=== PATIENT | male | born 1970 | race Caucasian/White ===

== ENCOUNTER 2017-07-07 18:10 | Emergency (ER) | payer MEDICARE | END 2017-07-07 20:10 | disposition home or self-care (01) | LOC: D.ER 18:10 | DX: J02.9 Acute pharyngitis, unspecified (principal); F41.8 Other specified anxiety disorders; F17.200 Nicotine dependence, unspecified, uncomplicated ==

== ENCOUNTER 2017-10-27 05:32 | Emergency (ER) | payer MEDICARE | END 2017-10-27 06:12 | disposition home or self-care (01) | LOC: D.ER 05:32 | DX: M25.562 Pain in left knee (principal); M17.12 Unilateral primary osteoarthritis, left knee; F98.8 Other specified behavioral and emotional disorders with onset usually occurring in childhood and adolescence ==

== ENCOUNTER 2017-11-24 21:34 | Emergency (ER) | payer MEDICARE | END 2017-11-24 23:06 | disposition home or self-care (01) | LOC: D.ER 21:34 | DX: L02.416 Cutaneous abscess of left lower limb (principal); L02.415 Cutaneous abscess of right lower limb; F98.8 Other specified behavioral and emotional disorders with onset usually occurring in childhood and adolescence ==

== ENCOUNTER 2019-03-07 08:47 | Inpatient (IN) | payer MEDICARE ==
[2019-03-07] MEDS ORDERED: SUBOXONE 2 MG-01 TAB SL (08:56)
[2019-03-07 09:23] LABS: BASOPHILS 0.1 % (0-2); EOSINOPHILS 0.3 % (0-7); HEMATOCRIT 38.2 % (42.0-54.0); HEMOGLOBIN 13.1 g/dL (13.5-17.5); IMMATURE GRANULOCYTES 0.2 % (0-5); LYMPHOCYTES 17.1 % (15-50); MCH 29.2 pg (26.0-34.0); MCHC 34.3 g/dL (31.0-37.0); MCV 85.1 fL (80.0-100.0); MEAN PLATELET VOLUME 9.5 fL (7.4-10.4); MONOCYTES 11.4 % (2-11); NEUTROPHILS 70.9 % (40-80); PLATELET COUNT 244 10x3/uL (130-400); RBC 4.49 10x6/uL (4.20-6.10); RDW 13.3 % (11.5-14.5); WBC 10.1 10x3/uL (4.8-10.8)
[2019-03-07 09:38] LABS: ALBUMIN 3.5 g/dL (3.4-5.0); ALKALINE PHOSPHATASE 135 U/L (46-116); ALT (SGPT) 87 U/L (10-68); BILIRUBIN - TOTAL 1.07 mg/dL (0.2-1.3); CALC OSMOLALITY 269 mosm/kg (275-300); CALCIUM 8.8 mg/dL (8.5-10.1); CARBON DIOXIDE 25.2 mmol/L (21.0-32.0); CHLORIDE - SERUM 97 mmol/L (98-107); CREATININE - SERUM 1.1 mg/dL (0.6-1.3); GLUCOSE 98 mg/dL (74-106); POTASSIUM - SERUM 3.7 mmol/L (3.5-5.1); PROTEIN - SERUM 7.2 g/dL (6.4-8.2); SODIUM 134 mmol/L (136-145); UREA NITROGEN 19 mg/dL (7-18); eGFR NON AFRICAN AMERICAN 76 mL/min (90-120)
[2019-03-07 09:41] LABS: APPEARANCE CLEAR (CLEAR); BILIRUBIN NEGATIVE (NEGATIVE); COLOR DK YELLOW (YELLOW); GLUCOSE NEGATIVE (NEGATIVE); KETONE NEGATIVE (NEGATIVE); NITRITE NEGATIVE (NEGATIVE); PROTEIN NEGATIVE (NEGATIVE); SPECIFIC GRAVITY 1.025 (1.005-1.020); UROBILINOGEN NORMAL (NORMAL)
[2019-03-07 09:49] LABS: UDS - AMPHET POSITIVE QUAL (NEGATIVE); UDS - BARB NEGATIVE QUAL (NEGATIVE); UDS - BENZO POSITIVE QUAL (NEGATIVE); UDS - COCAINE NEGATIVE QUAL (NEGATIVE); UDS - OPIATE NEGATIVE QUAL (NEGATIVE); UDS - PCP NEGATIVE QUAL (NEGATIVE); UDS - THC POSITIVE QUAL (NEGATIVE)
[2019-03-07 10:10] LABS: CREATINE KINASE 3833 UL (21-232)
[2019-03-07 10:32] LABS: CKMB 22.4 U/L (0.0-3.6)
--- NOTE | 2019-03-07 10:34 | NUR ---
PT DECLINED IV AND FLUIDS. REQUESTING TO LEAVE. DR SALINAS INFORMED
[2019-03-07 11:30] VITALS: BP 152/88
[2019-03-07 14:31] VITALS: BP 121/62
[2019-03-07 16:46] VITALS: BP 100/74
[2019-03-07 18:02] VITALS: BP 152/88; BMI 28.7
--- NOTE | 2019-03-07 19:25 | NUR ---
ASSISTED UP TO BR. GAIT VERY UNSTEADY. WEAKNESS NOTED. ALERT AND ORIENTED TO SELF AND PLACE. CONFUSED. SPEECH DIFF TO UNDERSTAND AT TIMES. ELEONORA ALARM PLACED ON BED FOR PT SAFETY. ENCOURAGED TO USE CALL WAGONER FOR ASSISTANCE. DIFF FOLLOWING DIRECTIONS. IMPULSIVE BEHAVIOR NOTED. RESP EVEN AND NONLABORED. TELEMETRY SHOWS SR WITH RATE OF 76. DENIES PAIN. MVI INFUSING AT THIS TIME @ 125 MLHR IN LT HAND. SR ELEVATED X2. CL IN REACH.
[2019-03-07 20:00] VITALS: BP 92/52
--- NOTE | 2019-03-08 02:08 | NUR ---
SITTING UP ON SIDE OF BED. ALARM ACTIVATED. ASSISTED TO BR. PT IRRITABLE WITH STAFF AND UNSTEADY STANDING UP. INSISTS HE AMB BY HIMSELF. STAFF INSISTED THAT HE LET THEM HELP HIM AMB TO BATHROOM. AGITATED. ASSISTED BACK TO BED AFTER VOIDING. MEDICATED WITH ATIVAN FOR ANXIETY. CL IN REACH.
[2019-03-08 04:00] VITALS: BP 90/50
[2019-03-08 05:46] LABS: BASOPHILS 0.3 % (0-2); EOSINOPHILS 2.3 % (0-7); HEMATOCRIT 37.5 % (42.0-54.0); HEMOGLOBIN 12.3 g/dL (13.5-17.5); LYMPHOCYTES 33.7 % (15-50); MCH 28.7 pg (26.0-34.0); MCHC 32.8 g/dL (31.0-37.0); MEAN PLATELET VOLUME 9.9 fL (7.4-10.4); MONOCYTES 11.3 % (2-11); NEUTROPHILS 52.4 % (40-80); PLATELET COUNT 208 10x3/uL (130-400); RBC 4.29 10x6/uL (4.20-6.10); RDW 13.8 % (11.5-14.5)
[2019-03-08 05:51] LABS: MCV 87.4 fL (80.0-100.0)
[2019-03-08 06:02] LABS: CALC OSMOLALITY 278 mosm/kg (275-300); CARBON DIOXIDE 28.3 mmol/L (21.0-32.0); CHLORIDE - SERUM 104 mmol/L (98-107); CREATININE - SERUM 0.6 mg/dL (0.6-1.3); GLUCOSE 124 mg/dL (74-106); MAGNESIUM - SERUM 2.1 mg/dL (1.8-2.4); PHOSPHOROUS 2.7 mg/dL (2.5-4.9); SODIUM 140 mmol/L (136-145); UREA NITROGEN 11 mg/dL (7-18); eGFR NON AFRICAN AMERICAN > 90 mL/min (90-120)
--- NOTE | 2019-03-08 08:41 | NUR ---
PT SITTING UP IN BED EATING BREAKFAST. CO OF BEING "SHAKY" NO S/S OF ACUTE DISTRESS. DT PRECAUTIONS IN PLACE. CL IN PLACE.
[2019-03-08 08:51] VITALS: BP 102/55
[2019-03-08 12:41] VITALS: BP 105/52
[2019-03-08 12:59] LABS: CREATINE KINASE 1242 UL (21-232)
--- NOTE | 2019-03-08 13:53 | MORECARE ---
CASE MANAGEMENT DISCHARGE SUMMARY PATIENT: DANETTE SOLITARIO UNIT: [id number] ADM DATE: 03/07/19 AGE: 48 : 70 SEX: M ROOM/BED: D.2232 AUTHOR: SUSHILA HERNANDEZ PHYSICIAN: REFERRING PHYSICIAN: CECILIA DUMONT MD DATE OF SERVICE: 03/08/19 Discharge Plan Patient Name: DANETTE SOLITARIO Facility: [facility]:[place] : 1970 Planned Disposition: Other Type of Facility Anticipated Discharge Date: Discharge Date: Expected LOS: Initial Reviewer: [email or web address] Initial Review Date: 03/07/2019 Generated: 03/08/19 2:53 pm Patient Name: DANETTE SOLITARIO Page [id number] at 1353 All edits/amendments must be made on the electronic document DICTATION DATE: 03/08/19 1353 TUMBLER MACHINE OPERATOR HELPER: JEFERSON 03/08/19 1353 RPT#: [id number] DC DATE: STATUS: ADM IN [facility] [address] [place] [address] END OF REPORT
--- NOTE | 2019-03-08 14:02 | MORECARE ---
CASE MANAGEMENT DISCHARGE SUMMARY PATIENT: DANETTE SOLITARIO UNIT: [id number] ADM DATE: 03/07/19 AGE: 48 : 70 SEX: M ROOM/BED: D.2232 AUTHOR: SUSHILA HERNANDEZ PHYSICIAN: REFERRING PHYSICIAN: CECILIA DUMONT MD DATE OF SERVICE: 03/08/19 Discharge Plan Patient Name: DANETTE SOLITARIO [facility] : 1970 Planned Disposition: Other Type of Facility Anticipated Discharge Date: Discharge Date: Expected LOS: Initial Reviewer: [email or web address] Initial Review Date: 03/07/2019 Generated: 03/08/19 3:01 pm DCPIA - Discharge Planning Initial Assessment Updated by [email or web address]: Mari Davila on 03/08/19 1:57 pm * Is the patient Alert and Oriented? Yes * How many steps to enter\exit or inside your home? n/a * PCP NONE * Pharmacy [facility] [place] and [facility] * Preadmission Environment Homeless * Other Environment Plans to find an apartment * Facility Name Not known at this time * ADLs Independent * Equipment None * Other Equipment N/A * Verbal permission to speak to the caregivers and representatives has been obtained from the patient. No * Community resources currently utilized None * Please name any agencies selected above. N/A * Additional services required to return to the preadmission environment? Yes * Can the patient safely return to the preadmission environment? No * Has this patient been hospitalized within the prior 30 days at any hospital? No Last DP export: 03/08/19 12:53 pm Patient Name: DANETTE SOLITARIO Page [id number] at 1402 All edits/amendments must be made on the electronic document DICTATION DATE: 03/08/19 1401 BULL CHAIN OPERATOR: JEFERSON 03/08/19 1401 RPT#: [id number] DC DATE: STATUS: ADM IN [facility] [address] [place] [address] END OF REPORT
--- NOTE | 2019-03-08 14:21 | MORECARE ---
CASE MANAGEMENT DISCHARGE SUMMARY PATIENT: DANETTE SOLITARIO UNIT: [id number] ADM DATE: 03/07/19 AGE: 48 : 70 SEX: M ROOM/BED: D.2232 AUTHOR: DAVID,DOC PHYSICIAN: REFERRING PHYSICIAN: CECILIA DUMONT MD DATE OF SERVICE: 03/08/19 Discharge Plan Patient Name: DANETTE SOLITARIO Facility: [facility]:[place] : 1970 Planned Disposition: Other Type of Facility Anticipated Discharge Date: Discharge Date: Expected LOS: Initial Reviewer: [email or web address] Initial Review Date: 03/07/2019 Generated: 03/08/19 3:21 pm Comments DCP- Discharge Planning Updated by [email or web address]: Mari Davila on 03/08/19 1:[address] CM MET WITH THE PATIENT AT HIS BEDSIDE. HE IS ALERT AND ORIENTED. CM EXPLAINED ROLE , REQUESTED AND RECEIVED PERMISSION TO CONTINUE WITH ASSESSMENT. PATIENT HAS A [facility] ADDRESS LISTED. WHEN QUESTIONED HE STATES HE HAS LIVED IN [place] FOR 6- 8 MONTHS. HE STATES HE IS IN [place] WITH " WORK FRIENDS". 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 HE SAYS THE CENTER HAS A CHEM FREE HOUSE HERE IN [place]. HE STATES HE CANNOT RECALL THE ADDRESS. PCP- NONE CLINIC- NONE DME- NONE PHARMACY- [facility] ON [facility] AND [place]. PATIENT STATES HE LOST HIS PHONE AND HIS BILLFOLD WAS STOLEN. WHEN QUESTIONED STATES THE LOSS WAS REPORTED. 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 HE CANNOT GET HIS LICENSE BACK FOR A YEAR. STATES HE NEEDS TO GET ON [email or web address] TO CONTACT HIS FRIENDS TO GET HOUSING AND TRANSPORTATION. HE ASK ABOUT THE [place]. HE ALSO ASK ABOUT A HOUSING COMPLEX ON [address]. STATES HE HAS FRIENDS THAT LIVE IN THERE AND THEY CAN ASSIST HIM. HE IS UNDOMICILED. WILL NEED TRANSPORTATION AT DISCHARGE. HAS NO DME AND DENIES ANY DME NEEDS. CM TO FOLLOW TO ASSIST IS APPROPRIATE. DCPIA - Discharge Planning Initial Assessment Updated by [email or web address]: Mari Davila on 03/08/19 1:57 pm * Is the patient Alert and Oriented? Yes * How many steps to enter\\exit or inside your home? n/a * PCP NONE * Pharmacy [facility] [place] and * Preadmission Environment Homeless * Other Environment Plans to find an apartment * Facility Name Not known at this time * ADLs Independent * Equipment None * Other Equipment N/A * Verbal permission to speak to the caregivers and representatives has been obtained from the patient. No * Community resources currently utilized None * Please name any agencies selected above. N/A * Additional services required to return to the preadmission environment? Yes * Can the patient safely return to the preadmission environment? No * Has this patient been hospitalized within the prior 30 days at any hospital? No Last DP export: 03/08/19 1:01 pm Patient Name: DANETTE SOLITARIO Page [id number] at 1421 All edits/amendments must be made on the electronic document DICTATION DATE: 03/08/191420 TANK TRUCK DRIVER: JEFERSON 03/08/191420 RPT#: [id number] DC DATE: STATUS: ADM IN [facility] [address] [place] [address] END OF REPORT
[2019-03-08 17:21] VITALS: BP 136/82
--- NOTE | 2019-03-08 18:24 | NUR ---
PT RESTING IN BED. AROUSED BY VERBAL STIMULI. NO S/S OF ACUTE DISTRESS. CL IN PLACE.
--- NOTE | 2019-03-08 19:15 | NUR ---
AWAKE. LYING IN BED. ALERT AND ORIENTED TO SELF AND PLACE. CONFUSED TO TIME AND SITUATION. IMPULSIVE. ELEONORA ALARM ON FOR PT SAFETY. TELEMETRY SHOWS SR WITH RATE OF 77. MVI INFUSING @ 125 MLHR IN LT UPPER ARM WITHOUT DIFF. AMB WITH STANDBY ASSIST. RESP EVEN AND NONLABORED. NO DISTRESS. SR ELEVATED X2. CL IN REACH.
[2019-03-08 20:15] VITALS: BP 103/50
--- NOTE | 2019-03-08 21:00 | NUR ---
ASSISTED UP TO SHOWER. COMPLETE LINEN CHANGE AT THIS TIME.
--- NOTE | 2019-03-08 21:35 | NUR ---
REQUESTS ATIVAN FOR ANXIETY. MEDICATED ORDERED. CL IN REACH. ELEONORA ALARM IN USE.
[2019-03-09] VITALS: BP 131/79
[2019-03-09 04:00] VITALS: BP 96/54
[2019-03-09 06:30] LABS: BASOPHILS 0.2 % (0-2); EOSINOPHILS 1.6 % (0-7); HEMATOCRIT 35.8 % (42.0-54.0); HEMOGLOBIN 11.4 g/dL (13.5-17.5); IMMATURE GRANULOCYTES 0.2 % (0-5); LYMPHOCYTES 33.9 % (15-50); MCH 28.4 pg (26.0-34.0); MCHC 31.8 g/dL (31.0-37.0); MCV 89.3 fL (80.0-100.0); MEAN PLATELET VOLUME 9.8 fL (7.4-10.4); NEUTROPHILS 54.1 % (40-80); PLATELET COUNT 217 10x3/uL (130-400); RBC 4.01 10x6/uL (4.20-6.10); RDW 14.2 % (11.5-14.5); WBC 4.3 10x3/uL (4.8-10.8)
[2019-03-09 06:57] LABS: ALKALINE PHOSPHATASE 97 U/L (46-116); BILIRUBIN - TOTAL 0.27 mg/dL (0.2-1.3); CALC OSMOLALITY 285 mosm/kg (275-300); CARBON DIOXIDE 29.7 mmol/L (21.0-32.0); CHLORIDE - SERUM 109 mmol/L (98-107); CREATININE - SERUM 0.6 mg/dL (0.6-1.3); GLUCOSE 106 mg/dL (74-106); POTASSIUM - SERUM 3.4 mmol/L (3.5-5.1); PROTEIN - SERUM 5.6 g/dL (6.4-8.2); SODIUM 144 mmol/L (136-145); UREA NITROGEN 9 mg/dL (7-18); eGFR NON AFRICAN AMERICAN > 90 mL/min (90-120)
[2019-03-09 06:58] LABS: ALBUMIN 2.5 g/dL (3.4-5.0); ALT (SGPT) 63 U/L (10-68); CREATINE KINASE 642 UL (21-232)
[2019-03-09 09:15] VITALS: BP 127/72
--- NOTE | 2019-03-09 10:35 | NUR ---
MORNING ASSESSMENT COMPLETE. SEE ASSESSMENT FLOWSHEET FOR FURTHER DETAILS. PT LYING IN BED. DENIES NEEDS AT THIS TIME. CL IN REACH. SIDE RAILS UP X3 FOR PT SAFETY. BED IN LOWEST POSITION.
[2019-03-09] MEDS ORDERED: SUBOXONE MIS 8-2 SL (12:09)
[2019-03-09] MEDS ORDERED: CLONAZEPAM TAB 2MG PO (12:09)
[2019-03-09] MEDS ORDERED: LITHIUM CARB CAP 300 PO (12:09)
[2019-03-09] MEDS ORDERED: LYRICA300 MG PO (12:10)
[2019-03-09] MEDS ORDERED: ADDERALL 20 MG20 M1 PO (12:10)
[2019-03-09] MEDS ORDERED: CELEXA40 MG PO (12:10)
[2019-03-09] MEDS ORDERED: HYDROCODON-ACE1 EAC7 (12:10)
[2019-03-09 14:01] VITALS: BP 116/49
[2019-03-09 18:29] VITALS: BP 107/53
[2019-03-09 20:00] VITALS: BP 116/46
[2019-03-10] VITALS: BP 121/58
[2019-03-10 04:00] VITALS: BP 126/57
--- NOTE | 2019-03-10 04:06 | NUR ---
PT RESTING IN BED. EYES CLOSED. NO SIGNS OF DISTRESS. BREATHING EVEN AND UNLABORED. CALL LIGHT IN REACH. WILL CONTINUE PLAN OF CARE.
--- NOTE | 2019-03-10 04:08 | NUR ---
I have reviewed this patient and I concur with the Shift Assessment completed by the Licensed Practical Nurse today this shift.
[2019-03-10 05:14] LABS: BASOPHILS 0.4 % (0-2); EOSINOPHILS 2.1 % (0-7); HEMOGLOBIN 11.3 g/dL (13.5-17.5); IMMATURE GRANULOCYTES 0.2 % (0-5); LYMPHOCYTES 33.7 % (15-50); MCH 28.3 pg (26.0-34.0); MCHC 31.4 g/dL (31.0-37.0); MEAN PLATELET VOLUME 10.6 fL (7.4-10.4); MONOCYTES 10.3 % (2-11); NEUTROPHILS 53.3 % (40-80); PLATELET COUNT 191 10x3/uL (130-400); RDW 14.2 % (11.5-14.5); WBC 5.3 10x3/uL (4.8-10.8)
[2019-03-10 05:41] LABS: ALBUMIN 2.4 g/dL (3.4-5.0); ALKALINE PHOSPHATASE 97 U/L (46-116); ALT (SGPT) 56 U/L (10-68); BILIRUBIN - TOTAL 0.23 mg/dL (0.2-1.3); CALC OSMOLALITY 279 mosm/kg (275-300); CALCIUM 7.8 mg/dL (8.5-10.1); CARBON DIOXIDE 29.1 mmol/L (21.0-32.0); CHLORIDE - SERUM 109 mmol/L (98-107); CKMB 1.2 U/L (0.0-3.6); CREATININE - SERUM 0.5 mg/dL (0.6-1.3); GLUCOSE 84 mg/dL (74-106); PROTEIN - SERUM 5.6 g/dL (6.4-8.2); SODIUM 142 mmol/L (136-145); UREA NITROGEN 7 mg/dL (7-18); eGFR NON AFRICAN AMERICAN > 90 mL/min (90-120)
[2019-03-10 05:51] LABS: CREATINE KINASE 303 UL (21-232)
--- NOTE | 2019-03-10 08:22 | MORECARE ---
CASE MANAGEMENT DISCHARGE SUMMARY PATIENT: DANETTE SOLITARIO UNIT: [id number] ADM DATE: 03/08/19 AGE: 48 : 70 SEX: M ROOM/BED: D.2232 AUTHOR: DAVID,DOC PHYSICIAN: REFERRING PHYSICIAN: CECILIA DUMONT MD DATE OF SERVICE: 03/10/19 Discharge Plan Patient Name: DANETTE SOLITARIO Facility: [facility]:[place] : 1970 Planned Disposition: Other Type of Facility Anticipated Discharge Date: Discharge Date: Expected LOS: Initial Reviewer: [email or web address] Initial Review Date: 03/07/2019 Generated: 03/10/19 9:21 am Comments DCP- Discharge Planning Updated by [email or web address]: Ananya Lundberg on 03/10/19 7:[address] CM met with patient and he has asked me to call his mother to see if he will have a ride home today. Her name and number: Leanne Baca - [phone]. I called her and transferred the call into his room. CM will continue to follow and assist with discharge planning/needs. DCP- Discharge Planning Updated by [id number]: Mari Davila on 03/08/19 1:[address] CM MET WITH THE PATIENT AT HIS BEDSIDE. HE IS ALERT AND ORIENTED. CM EXPLAINED ROLE , REQUESTED AND RECEIVED PERMISSION TO CONTINUE WITH ASSESSMENT. PATIENT HAS A [facility] ADDRESS LISTED. WHEN QUESTIONED HE STATES HE HAS LIVED IN [place] FOR 6- 8 MONTHS. HE STATES HE IS IN [place] WITH " WORK FRIENDS". 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 HE SAYS THE CENTER HAS A CHEM FREE HOUSE HERE IN [place]. HE STATES HE CANNOT RECALL THE ADDRESS. PCP- NONE CLINIC- NONE DME- NONE PHARMACY- [facility] ON [facility]. PATIENT STATES HE LOST HIS PHONE AND HIS BILLFOLD WAS STOLEN. WHEN QUESTIONED STATES THE LOSS WAS REPORTED. HE DOES NOT HAVE A EELER'S LICENSE. HE CANNOT GET HIS LICENSE BACK FOR A YEAR. STATES HE NEEDS TO GET ON [employer] TO CONTACT HIS FRIENDS TO GET HOUSING AND TRANSPORTATION. HE ASK ABOUT THE [place]. HE ALSO ASK ABOUT A HOUSING COMPLEX ON [facility]. STATES HE HAS FRIENDS THAT LIVE IN THERE AND THEY CAN ASSIST HIM. HE IS UNDOMICILED. WILL NEED TRANSPORTATION AT DISCHARGE. HAS NO DME AND DENIES ANY DME NEEDS. CM TO FOLLOW TO ASSIST IS APPROPRIATE. DCPIA - Discharge Planning Initial Assessment Updated by [id number]: Mari Davila on 03/08/19 1:57 pm * Is the patient Alert and Oriented? Yes * How many steps to enter\\exit or inside your home? n/a * PCP NONE * Pharmacy [facility] [place] and [facility] * Preadmission Environment Homeless * Other Environment Plans to find an apartment * Facility Name Not known at this time * ADLs Independent * Equipment None * Other Equipment N/A * Verbal permission to speak to the caregivers and representatives has been obtained from the patient. No * Community resources currently utilized None * Please name any agencies selected above. N/A * Additional services required to return to the preadmission environment? Yes * Can the patient safely return to the preadmission environment? No * Has this patient been hospitalized within the prior 30 days at any hospital? No Last DP export: 03/08/19 1:21 pm Patient Name: DANETTE SOLITARIO Page [phone] at 0822 All edits/amendments must be made on the electronic document DICTATION DATE: 03/10/19820 COVERSTITCH BINDER: JEFERSON 03/10/19820 RPT#: [id number] DC DATE: STATUS: ADM IN [facility] [address] [place] [address] END OF REPORT
[2019-03-10 08:45] VITALS: BP 128/68
--- NOTE | 2019-03-10 09:41 | MORECARE ---
CASE MANAGEMENT DISCHARGE SUMMARY PATIENT: DANETTE SOLITARIO UNIT: [id number] ADM DATE: 03/08/19 AGE: 48 : 70 SEX: M ROOM/BED: D.2232 AUTHOR: DAVID,DOC PHYSICIAN: REFERRING PHYSICIAN: CECILIA DUMONT MD DATE OF SERVICE: 03/10/19 Discharge Plan Patient Name: DANETTE SOLITARIO Facility: [facility]:[place] : 1970 Planned Disposition: Other Type of Facility Anticipated Discharge Date: Discharge Date: Expected LOS: Initial Reviewer: [email or web address] Initial Review Date: 03/07/2019 Generated: 03/10/19 10:41 am Comments DCP- Discharge Planning Updated by [email or web address]: Ananya Lundberg on 03/10/19 8:[address] CM met with patient and gave him a list of Local Abuse houses and local shelters. He states a friend is supposed to be calling him back, but hasn't called yet. I gave him 2 bus tickets to get him home or to the senior living. He denies further needs at this time. CM will continue to follow and assist with discharge planning/needs. DCP- Discharge Planning Updated by [email or web address]: Ananya Lundberg on 03/10/19 7:[address] CM met with patient and he has asked me to call his mother to see if he will have a ride home today. Her name and number: Leanne Baca - [phone]. I called her and transferred the call into his room. CM will continue to follow and assist with discharge planning/needs. DCP- Discharge Planning Updated by [id number]: Mari Davila on 03/08/19 1:[address] CM MET WITH THE PATIENT AT HIS BEDSIDE. HE IS ALERT AND ORIENTED. CM EXPLAINED ROLE , REQUESTED AND RECEIVED PERMISSION TO CONTINUE WITH ASSESSMENT. PATIENT HAS A [facility] ADDRESS LISTED. WHEN QUESTIONED HE STATES HE HAS LIVED IN [place] FOR 6- 8 MONTHS. HE STATES HE IS IN [place] WITH " WORK FRIENDS". 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 HE SAYS THE CENTER HAS A CHEM FREE HOUSE HERE IN [place]. HE STATES HE CANNOT RECALL THE ADDRESS. PCP- NONE CLINIC- NONE DME- NONE PHARMACY- [facility] ON [facility] AND [place]. PATIENT STATES HE LOST HIS PHONE AND HIS BILLFOLD WAS STOLEN. WHEN QUESTIONED STATES THE LOSS WAS REPORTED. 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 HE CANNOT GET HIS LICENSE BACK FOR A YEAR. STATES HE NEEDS TO GET ON [employer] TO CONTACT HIS FRIENDS TO GET HOUSING AND TRANSPORTATION. HE ASK ABOUT THE [place]. HE ALSO ASK ABOUT A HOUSING COMPLEX ON [facility]. STATES HE HAS FRIENDS THAT LIVE IN THERE AND THEY CAN ASSIST HIM. HE IS UNDOMICILED. WILL NEED TRANSPORTATION AT DISCHARGE. HAS NO DME AND DENIES ANY DME NEEDS. CM TO FOLLOW TO ASSIST IS APPROPRIATE. DCPIA - Discharge Planning Initial Assessment Updated by [id number]: Mari Davila on 03/08/19 1:57 pm * Is the patient Alert and Oriented? Yes * How many steps to enter\\exit or inside your home? n/a * PCP NONE * [facility] [place] [facility] * Preadmission Environment Homeless * Other Environment Plans to find an apartment * Facility Name Not known at this time * ADLs Independent * Equipment None * Other Equipment N/A * Verbal permission to speak to the caregivers and representatives has been obtained from the patient. No * Community resources currently utilized None * Please name any agencies selected above. N/A * Additional services required to return to the preadmission environment? Yes * Can the patient safely return to the preadmission environment? No * Has this patient been hospitalized within the prior 30 days at any hospital? No Last DP export: 03/10/19 7:22 am Patient Name: DANETTE SOLITARIO Page [id number] at 0941 All edits/amendments must be made on the electronic document DICTATION DATE: 03/10/19939 DIRECTOR OF HEALTHCARE SYSTEMS: JEFERSON 03/10/19939 RPT#: [id number] DC DATE: STATUS: ADM IN [facility] [address] [place] [address] END OF REPORT
--- NOTE | 2019-03-10 12:17 | NUR ---
IV DC WITH CATH INTACT, DC INSTRUCTIONS GIVEN PT VERABLIZES UNDERSTANDING LEAVING VIA AMBULATING VIA PRIVATE VECHILE IN STABLE CONDITION
[2019-03-10 14:13] LABS: HEPATITIS C ANTIBODY <0.1 S/CO RAT (0.0-0.9)
--- NOTE | 2019-03-10 14:37 | EC ---
PATIENT:DANETTE SOLITARIO DATE OF SERVICE: 03/08/19 SEX: M MEDICAL RECORD: [id number] DATE OF : [birth year] LOCATION:[facility] AGE OF PATIENT: 48 ADMISSION DATE: 03/08/19 REFERRING PHYSICIAN: INTERPRETING PHYSICIAN: DAR QUIROGA MD ECHOCARDIOGRAM REPORT ECHO CHARGES 4 ECHO COMPLETE Date: 03/09/19 CLINICAL DIAGNOSIS: IV DRUG USE, R/O VEG ECHOCARDIOGRAPHIC MEASUREMENTS (adult normal given) AC root (d.<3.7cm) 3.5 cm LV Septum d (<1.2 cm> 1.1 cm Valve Excursion 1.5 cm LV Septum (systole) 1.5 cm Left Atria (s.<4.0cm> 3.2 cm LVPW d(<1.2cm) 0.9 cm RV (d.<2.3cm) 3.8 cm LVPW (sytole) 1.1 cm LV diastole(<5.6CM) 5.3 cm MV E-F(>70mm/sec) cm LV systole 4.2 cm LVOT Diameter 2.5 cm MV exc.(>10mm) cm Est.ejection fraction (50-75%) % DOPPLER: LVIT cm/sec A 69 cm/sec E 102 cm/sec LA cm/sec RVSP 28.1 mmHg LVOT 161 cm/sec AOP1/2T m/s Asc. Ao 166 cm/sec RVOT 89 cm/sec RA cm/sec PA 99 cm/sec AV Gradient Peak 11.1 mmHg AV Mean 6.0 mmHg AV Area 3.6 cm MV Gradient Peak 5.9 mmHg MV Mean 2.6 mmHg MV Area cm COMMENTS: Delinquent Tax Collector Assistant: Robi WALTER Air Quality Instrument Specialist: 1 Dr. Quiroga TAPE# PACS Pericardial Effusion N DATE OF SERVICE: 03/09/2019 FINDINGS: 1. Left ventricular chamber size is within normal limits. Left ventricular systolic function is normal. Overall ejection fraction is estimated at 60%. 2. Left atrium is within normal limits. Right atrium and right ventricular chamber sizes are mildly dilated. 3. Valvular structures have normal structure and motion. 4. Doppler interrogation reveals mild tricuspid regurgitation. No other valvular insufficiency or stenosis. Pulmonary systolic pressure is normal, ECHOCARDIOGRAM REPORT [id number] DANETTE SOLITARIO estimated at 28 mmHg. 5. No evidence of pericardial effusion or left ventricular thrombus. 6. No evidence of vegetative endocarditis. TRANSINT:[id number] Voice Confirmation ID: [id number] DOCUMENT ID: [id number] DAR QUIROGA MD at 1437 CC: [id number] DICTATION DATE: 03/09/19 1546 FURNITURE REMOVALIST: 03/09/19 1644 DIS IN 03/10/19 [place] [id number] [place] [id number]
--- NOTE | 2019-03-12 12:08 | MORECARE ---
CASE MANAGEMENT DISCHARGE SUMMARY PATIENT: DANETTE SOLITARIO UNIT: [id number] ADM DATE: 03/08/19 AGE: 48 : 70 SEX: M ROOM/BED: D.2232 AUTHOR: DAVID,DOC PHYSICIAN: REFERRING PHYSICIAN: CECILIA DUMONT MD DATE OF SERVICE: 03/12/19 Discharge Plan Patient Name: DANETTE SOLITARIO Facility: [facility]:[place] : 1970 Planned Disposition: Other Type of Facility Anticipated Discharge Date: Discharge Date: 03/10/2019 Expected LOS: 0 Initial Reviewer: [email or web address] Initial Review Date: 03/07/2019 Generated: 03/12/19 1:08 pm Comments DCP- Discharge Planning Updated by [email or web address]: Ananya Lundberg on 03/10/19 8:[address] CM met with patient and gave him a list of Local Abuse houses and local shelters. He states a friend is supposed to be calling him back, but hasn't called yet. I gave him 2 bus tickets to get him home or to the snf. He denies further needs at this time. CM will continue to follow and assist with discharge planning/needs. DCP- Discharge Planning Updated by [id number]: Ananya Lundberg on 03/10/19 7:[address] CM met with patient and he has asked me to call his mother to see if he will have a ride home today. Her name and number: Leanne Baca - [phone]. I called her and transferred the call into his room. CM will continue to follow and assist with discharge planning/needs. DCP- Discharge Planning Updated by [email or web address]: Mari Davila on 03/08/19 1:[address] CM MET WITH THE PATIENT AT HIS BEDSIDE. HE IS ALERT AND ORIENTED. CM EXPLAINED ROLE , REQUESTED AND RECEIVED PERMISSION TO CONTINUE WITH ASSESSMENT. PATIENT HAS A [facility] ADDRESS LISTED. WHEN QUESTIONED HE STATES HE HAS LIVED IN [place] FOR 6- 8 MONTHS. HE STATES HE IS IN [place] WITH " WORK FRIENDS". 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 HE SAYS THE CENTER HAS A CHEM FREE HOUSE HERE IN [place]. HE STATES HE CANNOT RECALL THE ADDRESS. PCP- NONE CLINIC- NONE DME- NONE PHARMACY- [facility] ON [address] AND [place]. PATIENT STATES HE LOST HIS PHONE AND HIS BILLFOLD WAS STOLEN. WHEN QUESTIONED STATES THE LOSS WAS REPORTED. 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 HE CANNOT GET HIS LICENSE BACK FOR A YEAR. STATES HE NEEDS TO GET ON [employer] TO CONTACT HIS FRIENDS TO GET HOUSING AND TRANSPORTATION. HE ASK ABOUT THE [place]. HE ALSO ASK ABOUT A HOUSING COMPLEX ON [facility]. STATES HE HAS FRIENDS THAT LIVE IN THERE AND THEY CAN ASSIST HIM. HE IS UNDOMICILED. WILL NEED TRANSPORTATION AT DISCHARGE. HAS NO DME AND DENIES ANY DME NEEDS. CM TO FOLLOW TO ASSIST IS APPROPRIATE. DCPIA - Discharge Planning Initial Assessment Updated by [email or web address]: Mari Davila on 03/08/19 1:57 pm * Is the patient Alert and Oriented? Yes * How many steps to enter\\exit or inside your home? n/a * PCP NONE * [facility]acy [facility] [place] and [facility] [address] * Preadmission Environment Homeless * Other Environment Plans to find an apartment * Facility Name Not known at this time * ADLs Independent * Equipment None * Other Equipment N/A * Verbal permission to speak to the caregivers and representatives has been obtained from the patient. No * Community resources currently utilized None * Please name any agencies selected above. N/A * Additional services required to return to the preadmission environment? Yes * Can the patient safely return to the preadmission environment? No * Has this patient been hospitalized within the prior 30 days at any hospital? No Last DP export: 03/10/19 8:41 am Patient Name: DANETTE SOLITARIO Page [id number] at 1208 All edits/amendments must be made on the electronic document DICTATION DATE: 03/12/191206 RAILROAD MECHANIC: JEFERSON 03/12/191206 RPT#: [id number] DC DATE:03/10/19 STATUS: DIS IN [facility] [address] [place] [address] END OF REPORT
== END 2019-03-10 12:22 | disposition home or self-care (01) | DRG 558 ==
LOC: D.ER 08:47 → D.MS 11:23 → OBSVTIME 11:23 → D.MS 11:23
PROVIDERS: Family Medicine; Internal Medicine Nephrology; ADMIT Emergency Medicine; ATTEND Emergency Medicine
DX: M62.82 Rhabdomyolysis (principal); F17.213 Nicotine dependence, cigarettes, with withdrawal; F15.10 Other stimulant abuse, uncomplicated; E66.9 Obesity, unspecified; Z68.37 Body mass index [BMI] 37.0-37.9, adult; F12.90 Cannabis use, unspecified, uncomplicated

== ENCOUNTER 2019-03-11 05:45 | Emergency (ER) | payer MEDICARE ==
[~2019-03-11] VITALS: Ht 177.8 cm; Wt 118.2 kg
[~2019-03-11 05:45] MED LIST: ADDERALL 20 MG20 M1 PO; CELEXA40 MG PO; CLONAZEPAM TAB 2MG PO; HYDROCODON-ACE1 EAC7; LITHIUM CARB CAP 300 PO; LYRICA300 MG PO; SUBOXONE 2 MG-01 TAB SL; SUBOXONE MIS 8-2 SL
[2019-03-11 05:46] VITALS: BP 149/82; Ht 177.8 cm; Wt 118.2 kg
[2019-03-11 06:33] LABS: HEMATOCRIT 37.2 % (42.0-54.0); HEMOGLOBIN 12.3 g/dL (13.5-17.5); IMMATURE GRANULOCYTES 0.3 % (0-5); MCHC 33.1 g/dL (31.0-37.0); MCV 87.7 fL (80.0-100.0); MEAN PLATELET VOLUME 9.5 fL (7.4-10.4); PLATELET COUNT 263 10x3/uL (130-400); RBC 4.24 10x6/uL (4.20-6.10); RDW 14.3 % (11.5-14.5); WBC 7.7 10x3/uL (4.8-10.8)
[2019-03-11 06:48] LABS: APTT 29.8 SECONDS (22.8-39.4); INR 1.08 (0.85-1.17); PROTIME 13.5 SECONDS (11.6-15.0)
[2019-03-11 06:50] LABS: D-DIMER-QUANTITATIVE 3.66 ug/mLFEU (0.20-0.54)
[2019-03-11 06:58] LABS: ALKALINE PHOSPHATASE 129 U/L (46-116); ALT (SGPT) 65 U/L (10-68); BILIRUBIN - TOTAL 0.51 mg/dL (0.2-1.3); CALCIUM 8.9 mg/dL (8.5-10.1); CARBON DIOXIDE 29.6 mmol/L (21.0-32.0); CHLORIDE - SERUM 100 mmol/L (98-107); POTASSIUM - SERUM 3.8 mmol/L (3.5-5.1); PROTEIN - SERUM 6.9 g/dL (6.4-8.2); SODIUM 136 mmol/L (136-145); UREA NITROGEN 6 mg/dL (7-18)
[2019-03-11 06:59] LABS: ALBUMIN 3.3 g/dL (3.4-5.0); CALC OSMOLALITY 271 mosm/kg (275-300); CREATININE - SERUM 0.7 mg/dL (0.6-1.3); GLUCOSE 128 mg/dL (74-106); eGFR NON AFRICAN AMERICAN > 90 mL/min (90-120)
[2019-03-11 07:00] LABS: CKMB 10.8 U/L (0.0-3.6); TROPONIN-I < 0.017 ng/mL (0.000-0.060)
[2019-03-11 07:03] LABS: CREATINE KINASE 1596 UL (21-232)
[2019-03-11 07:55] LABS: LYMPHOCYTES 24 % (15-50); MONOCYTES 14 % (2-11); NEUTROPHILS 62 % (40-80)
[2019-03-11 07:56] LABS: PLATELET ESTIMATE NORMAL
--- NOTE | 2019-03-11 08:53 | NUR ---
DR. MARCELINO NOTIFIED AND REVIEWED PATIENTS BEHAVIOR AND ASSESSMENT RESULTS. PATIENT IS AT LOW RISK. DR. MARCELINO STATED TO GIVE PATIENT RESOURES INFORMATION AND NEEDS FOLLOW-UP WITH OUTPATIENT THERAPY. RESOURES REVIEWED WITH PATIENT AND HE VERBALIZES UNDERSTANDING.
== END 2019-03-11 12:38 | disposition home or self-care (01) ==
LOC: D.ER 05:45
PROVIDERS: Family Medicine
DX: M79.605 Pain in left leg (principal); M79.604 Pain in right leg; Z59.0 Homelessness; I87.2 Venous insufficiency (chronic) (peripheral)

== ENCOUNTER 2019-03-21 08:28 | Emergency (ER) | payer MEDICARE ==
[~2019-03-21] VITALS: Ht 177.8 cm; Wt 120.5 kg
[2019-03-21 08:29] VITALS: Ht 177.8 cm; Wt 120.5 kg
[2019-03-21 08:48] LABS: APPEARANCE CLEAR (CLEAR); BILIRUBIN NEGATIVE (NEGATIVE); COLOR YELLOW (YELLOW); GLUCOSE NEGATIVE (NEGATIVE); KETONE NEGATIVE (NEGATIVE); NITRITE NEGATIVE (NEGATIVE); PROTEIN NEGATIVE (NEGATIVE); SPECIFIC GRAVITY 1.015 (1.005-1.020); UROBILINOGEN NORMAL (NORMAL)
[2019-03-21 08:53] LABS: UDS - AMPHET NEGATIVE QUAL (NEGATIVE); UDS - BARB NEGATIVE QUAL (NEGATIVE); UDS - BENZO POSITIVE QUAL (NEGATIVE); UDS - COCAINE NEGATIVE QUAL (NEGATIVE); UDS - OPIATE NEGATIVE QUAL (NEGATIVE); UDS - PCP NEGATIVE QUAL (NEGATIVE); UDS - THC NEGATIVE QUAL (NEGATIVE)
[2019-03-21 09:22] LABS: BASOPHILS 0.1 % (0-2); EOSINOPHILS 1.9 % (0-7); HEMATOCRIT 41.6 % (42.0-54.0); HEMOGLOBIN 13.7 g/dL (13.5-17.5); IMMATURE GRANULOCYTES 0.3 % (0-5); LYMPHOCYTES 26.2 % (15-50); MCH 28.9 pg (26.0-34.0); MCHC 32.9 g/dL (31.0-37.0); MCV 87.8 fL (80.0-100.0); MEAN PLATELET VOLUME 9.2 fL (7.4-10.4); MONOCYTES 8.1 % (2-11); NEUTROPHILS 63.4 % (40-80); PLATELET COUNT 256 10x3/uL (130-400); RBC 4.74 10x6/uL (4.20-6.10); RDW 13.8 % (11.5-14.5)
[2019-03-21 09:42] LABS: ALBUMIN 3.2 g/dL (3.4-5.0); ALKALINE PHOSPHATASE 122 U/L (46-116); ALT (SGPT) 53 U/L (10-68); BILIRUBIN - TOTAL 0.22 mg/dL (0.2-1.3); CALC OSMOLALITY 279 mosm/kg (275-300); CALCIUM 9.3 mg/dL (8.5-10.1); CARBON DIOXIDE 28.8 mmol/L (21.0-32.0); CHLORIDE - SERUM 103 mmol/L (98-107); CREATININE - SERUM 0.9 mg/dL (0.6-1.3); GLUCOSE 195 mg/dL (74-106); MAGNESIUM - SERUM 2.2 mg/dL (1.8-2.4); POTASSIUM - SERUM 3.6 mmol/L (3.5-5.1); PROTEIN - SERUM 7.1 g/dL (6.4-8.2); SODIUM 138 mmol/L (136-145); UREA NITROGEN 11 mg/dL (7-18); eGFR NON AFRICAN AMERICAN > 90 mL/min (90-120)
[2019-03-21 11:26] VITALS: BP 128/74
== END 2019-03-21 11:28 | disposition home or self-care (01) ==
LOC: D.ER 08:28
PROVIDERS: Emergency Medicine
DX: F15.10 Other stimulant abuse, uncomplicated (principal)

== ENCOUNTER 2019-03-22 07:05 | Observation (INO) | payer MEDICARE ==
[~2019-03-22] VITALS: Ht 177.8 cm; Wt 115.5 kg
[2019-03-22] VITALS (12 sets, daily range): BP systolic 97–141; BP diastolic 56–81; Ht 177.8 cm; Wt 115.5 kg
[2019-03-22 07:37] LABS: APPEARANCE CLEAR (CLEAR); BILIRUBIN NEGATIVE (NEGATIVE); COLOR YELLOW (YELLOW); GLUCOSE NEGATIVE (NEGATIVE); KETONE NEGATIVE (NEGATIVE); NITRITE NEGATIVE (NEGATIVE); PROTEIN NEGATIVE (NEGATIVE)
[2019-03-22 07:40] LABS: BASOPHILS 0.3 % (0-2); EOSINOPHILS 2.2 % (0-7); HEMATOCRIT 39.4 % (42.0-54.0); HEMOGLOBIN 12.9 g/dL (13.5-17.5); IMMATURE GRANULOCYTES 0.3 % (0-5); LYMPHOCYTES 30.3 % (15-50); MCH 28.7 pg (26.0-34.0); MCHC 32.7 g/dL (31.0-37.0); MCV 87.8 fL (80.0-100.0); MEAN PLATELET VOLUME 9.2 fL (7.4-10.4); MONOCYTES 9.2 % (2-11); NEUTROPHILS 57.7 % (40-80); PLATELET COUNT 258 10x3/uL (130-400); RBC 4.49 10x6/uL (4.20-6.10); WBC 7.4 10x3/uL (4.8-10.8)
[2019-03-22 07:49] LABS: UDS - AMPHET NEGATIVE QUAL (NEGATIVE); UDS - BARB NEGATIVE QUAL (NEGATIVE); UDS - BENZO POSITIVE QUAL (NEGATIVE); UDS - COCAINE NEGATIVE QUAL (NEGATIVE); UDS - OPIATE NEGATIVE QUAL (NEGATIVE); UDS - PCP NEGATIVE QUAL (NEGATIVE); UDS - THC NEGATIVE QUAL (NEGATIVE)
[2019-03-22 08:01] LABS: ALKALINE PHOSPHATASE 116 U/L (46-116); ALT (SGPT) 49 U/L (10-68); BILIRUBIN - TOTAL 0.21 mg/dL (0.2-1.3); CALC OSMOLALITY 279 mosm/kg (275-300); CALCIUM 8.8 mg/dL (8.5-10.1); CARBON DIOXIDE 29.8 mmol/L (21.0-32.0); CHLORIDE - SERUM 105 mmol/L (98-107); CREATININE - SERUM 0.8 mg/dL (0.6-1.3); MAGNESIUM - SERUM 2.2 mg/dL (1.8-2.4); POTASSIUM - SERUM 3.9 mmol/L (3.5-5.1); PROTEIN - SERUM 6.7 g/dL (6.4-8.2); SODIUM 141 mmol/L (136-145); UREA NITROGEN 10 mg/dL (7-18); eGFR NON AFRICAN AMERICAN > 90 mL/min (90-120)
[2019-03-22 08:04] LABS: GLUCOSE 99 mg/dL (74-106)
--- NOTE | 2019-03-22 09:19 | NUR ---
PT RESTING WITH EYES CLOSED, BREAKFAST AT BEDSIDE.
--- NOTE | 2019-03-22 15:45 | NUR ---
REC'D VIA STRETCHER FROM ER 48YO MALE S/P UNINTENTIONAL OD ON KLONOPIN. DROWSY, SPEECH SLIGHTLY SLURRED, TREMORS AND GENERALLY ILL-KEPT. VSS. ASSESSED.
--- NOTE | 2019-03-22 16:20 | NUR ---
RT WRIST SL BAD- REMOVED. ATTEMPT X2 TO SITE IV UNSUCCESSFUL.
--- NOTE | 2019-03-22 17:31 | NUR ---
REMOVED PHONE FROM ROOM AFTER PT'S MOM ALLOWED TO CALL. IN HEARING HIS END OF THE CONVERSATION I FELT IT WAS COUNTER PRODUCTIVE D/T HIS AMS. INSTRUCTED HIS MOM THAT SHE COULD CALL BACK TOMORROW.
--- NOTE | 2019-03-22 20:24 | NUR ---
PT RECEIVED WITH EYES OPEN WATCHING TV. PT ORIENTED TO PERSON AND PLACE ONLY. REQUEST CRACKERS AND DRINK WHICH WAS PROVIDED. COMPLAINED OF FEET BEING COLD AND ADDITIONAL BLANKET PROVIDED TO COVER FEET. NO OTHER NEEDS OR CONCERNS MADE KNOWN. BROTHER CALLED FROM [employer] LIMITED INFORMATION GIVEN BUT LEFT HIS NUMBER AND A SISTERS NUMBER CONTACTS DUE TO MOTHERS AGE AND COMPREHENSION DUE TO AGE OF 87 PER SON. WILL CONTINUE TO OBSERVE. CALL LIGHT IN REACH.
--- NOTE | 2019-03-22 21:42 | NUR ---
PT RESTING WITH EYES CLOSED AND CHEST RISING. NO RESTLESSNESS NOTED. VSS. NO CONCERNS NOTED AT THIS TIME. CALL LIGHT IN REACH. WILL CONTINUE TO OBSERVE.
--- NOTE | 2019-03-22 22:15 | NUR ---
NICODERM PATCH PLACE TO RIGHT SHOULDER. PT RESTING WITH EYES CLOSED, AROUSED TO MEDIUM VERBAL STIMULI AND LIGHT CONTACT. PT MADE AWARE OF PATCH PRIOR TO PLACEMENT. VSS. WILL CONTINUE TO OBSERVE.
--- NOTE | 2019-03-22 22:58 | NUR ---
REPORT GIVEN TO NOLAN IN MED 2. PT TRANSFERS SELF TO WHEELCHAIR. PERSONAL BELONGINGS IN BAG WITH CHART. TO MED 2 VIA WHEELCHAIR BY OTHER ICU STAFF.
--- NOTE | 2019-03-22 23:31 | NUR ---
PT ARRIVED TO FLOOR VIA WHEEL CHAIR. PROVIDED COLA PER REQUEST. PT DENIES FURTHER NEEDS AT THIS TIME.
[2019-03-23] VITALS: BP 113/57
[2019-03-23 04:00] VITALS: BP 106/68
--- NOTE | 2019-03-23 04:42 | NUR ---
PT REFUSES TELE STATING "I DONT NEED A NICOLE HEART MONITOR."
--- NOTE | 2019-03-23 05:17 | NUR ---
PT REFUSED PROTONIX STATING "I DONT NEED THAT AND I HAVENT EVER NEEDED THAT."
[2019-03-23 05:37] LABS: BASOPHILS 0.3 % (0-2); EOSINOPHILS 2.5 % (0-7); HEMATOCRIT 40.3 % (42.0-54.0); IMMATURE GRANULOCYTES 0.3 % (0-5); LYMPHOCYTES 32.6 % (15-50); MCH 28.5 pg (26.0-34.0); MCHC 32.3 g/dL (31.0-37.0); MCV 88.4 fL (80.0-100.0); MEAN PLATELET VOLUME 9.6 fL (7.4-10.4); MONOCYTES 7.9 % (2-11); NEUTROPHILS 56.4 % (40-80); PLATELET COUNT 208 10x3/uL (130-400); RBC 4.56 10x6/uL (4.20-6.10); RDW 14.3 % (11.5-14.5)
[2019-03-23 06:12] LABS: ALBUMIN 2.6 g/dL (3.4-5.0); ALKALINE PHOSPHATASE 112 U/L (46-116); ALT (SGPT) 44 U/L (10-68); BILIRUBIN - TOTAL 0.16 mg/dL (0.2-1.3); CALC OSMOLALITY 287 mosm/kg (275-300); CALCIUM 8.4 mg/dL (8.5-10.1); CARBON DIOXIDE 30.3 mmol/L (21.0-32.0); CHLORIDE - SERUM 109 mmol/L (98-107); CREATININE - SERUM 0.6 mg/dL (0.6-1.3); GLUCOSE 106 mg/dL (74-106); MAGNESIUM - SERUM 2.2 mg/dL (1.8-2.4); POTASSIUM - SERUM 4.1 mmol/L (3.5-5.1); PROTEIN - SERUM 6.2 g/dL (6.4-8.2); SODIUM 145 mmol/L (136-145); UREA NITROGEN 9 mg/dL (7-18); eGFR NON AFRICAN AMERICAN > 90 mL/min (90-120)
--- NOTE | 2019-03-23 07:30 | NUR ---
PT RESTING IN BED, SHIFT ASSESSMENT PERFORMED, DENIES ANY NEEDS AT THIS TIME, WILL CONT TO FOLLOW POC
[2019-03-23 08:00] VITALS: BP 127/73
--- NOTE | 2019-03-23 09:30 | NUR ---
PT BROTHER CALLED AND REQUESTED NURSE TO GIVE HIM AN UPDATE ON PT. WENT TO PT ROOM TO OBTAIN APPROVAL TO SPEAK TO BROTHER. PT DOES NOT WANT HIS BROTHER TO KNOW ANYTHING ABOUT HIS CARE. NOTIFIED BROTHER WHO WAS NOT VERY HAPPY ABOUT IT BUT UNDERSTOOD.
[2019-03-23 12:12] VITALS: BP 110/77
--- NOTE | 2019-03-23 15:58 | NUR ---
SPOKE WITH [facility]. PT HAS AN APPOINTMENT THERE ON 03/25/19 TO GET SUBOXONE. GAVE PT A POST-IT WITH APPOINTMENT DATE AND TIME
[2019-03-23 16:24] VITALS: BP 118/68
--- NOTE | 2019-03-23 19:10 | NUR ---
PT'S LIGHT GOING OFF, PT STATED THAT HE HAS TO LEAVE IN THE NEXT 5MIN. INFORMED PT THAT WE WERE WAITING ON AUDREY BAUMAN APRN TO PUT IN DISCHARGE ORDER AND I CAN PRINT HIS PAPER WORK. 1915- WENT TO DO DISCHARGE TEACHING, PT WAS ALREADY GONE. IV WAS OUT.
--- NOTE | 2019-03-24 08:13 | MORECARE ---
CASE MANAGEMENT DISCHARGE SUMMARY PATIENT: DANETTE SOLITARIO UNIT: [id number] ADM DATE: 03/22/19 AGE: 48 : 70 SEX: M ROOM/BED: D.2132 AUTHOR: SUSHILA HERNANDEZ PHYSICIAN: REFERRING PHYSICIAN: MARION JOHNSON DO DATE OF SERVICE: 03/24/19 Discharge Plan Patient Name: DANETTE SOLITARIO Facility: [facility]:[place] : 1970 Planned Disposition: Home Anticipated Discharge Date: 03/23/19 Discharge Date: 03/23/2019 Expected LOS: 1 Initial Reviewer: [email or web address] Initial Review Date: 03/24/2019 Generated: 03/24/19 9:13 am Coverage Notice Reviewer: [email or web address] Sonyn Dutton Notice Issued Date-Time: 03/23/2019 15:21 Notice Type: Medicare Outpatient Observation Notice Notice Delivered To: Patient Relationship to Patient: Self Property Loss Insurance Claim Adjuster Name: Delivery Method: HAND - Hand Delivered Ramya Days: Prior Verbal Notification: Recipient Understood Notice: Yes Recipient Signature: Yes Med Rec Note Co-signed by Attending: Coverage Notice Comment: Patient Name: DANETTE SOLITARIO Page [phone] at 0813 All edits/amendments must be made on the electronic document DICTATION DATE: 03/24/19812 DATA OFFICER: JEFERSON 03/24/19812 RPT#: [id number] DC DATE:03/23/19 STATUS: DIS IN [facility] [address] [place] [address] END OF REPORT
--- NOTE | 2019-03-24 13:17 | CN ---
PATIENT NAME:DANETTE SOLITARIO MEDICAL RECORD: [id number] : 70 LOCATION:D. D.2132 ADMIT DATE: 03/22/19 ACCOUNT: [id number] CONSULTING PHYSICIAN: REINIER MARCELINO MD REFERRING PHYSICIAN: MARION JOHNSON DO DATE OF CONSULTATION: 03/23/2019 IDENTIFYING DATA: The patient is 48 years old and he was admitted to the hospital on a voluntary basis. CHIEF COMPLAINT: Confusion. HISTORY OF PRESENT ILLNESS: The patient was walking around the parking lot of a fast food restaurant and was confused. He has a history of methamphetamine and opiate addiction. He had also been taking some benzodiazepines. Now, he is fully cleared. He says he has no suicidal thoughts and there was never any concern about suicidality. It was just that he was brought to the hospital because he was clearly impaired. His urine drug screen was only positive for benzodiazepine. MENTAL STATUS EXAMINATION: The patient is awake, alert, and oriented fully. His mood is euthymic. His affect is appropriate. Thought processes are goal directed. Memory, concentration, and abstraction abilities are intact. He denies any intent to harm himself or others as well as psychotic symptoms. ASSESSMENT: Polysubstance abuse. PLAN: The patient can be reasonably discharged if medically stable. He does not want any kind of residential outpatient substance abuse followup. [facility] and they prescribe Suboxone to him. He would like to return there and continue taking that medication. TRANSINT:[id number] Voice Confirmation ID: [id number] DOCUMENT ID: [id number] REINIER MARCELINO MD at 1317 CC: [id number] DICTATION DATE: 03/23/19 1555 REJOGGER: 03/23/19 1808 DIS IN 03/23/19 [facility] [address] [place] [id number]
== END 2019-03-23 19:30 | disposition home or self-care (01) ==
LOC: D.ER 07:05 → OBSVTIME 14:07 → D.ICU 14:07 → D.CVICU 14:07 → D.M2 23:15
PROVIDERS: Family Medicine; ADMIT Family Medicine; ATTEND Family Medicine
DX: T42.4X1A Poisoning by benzodiazepines, accidental (unintentional), initial encounter (principal); R41.82 Altered mental status, unspecified; D64.9 Anemia, unspecified; F19.10 Other psychoactive substance abuse, uncomplicated

== ENCOUNTER 2019-05-29 08:41 | Emergency (ER) | payer MEDICARE ==
[~2019-05-29] VITALS: Ht 177.8 cm; Wt 115.9 kg
[2019-05-29 08:43] VITALS: BP 130/67; Ht 177.8 cm; Wt 115.9 kg
[2019-05-29] MEDS ORDERED: BUPRENORPHIN-N1 EACH SL (08:47)
[2019-05-29] MEDS ORDERED: CYCLOBENZAPRINE10 MG PO (08:58)
[2019-05-29] MEDS ORDERED: IBUPROFEN800 MG PO (08:58)
[2019-05-29] MEDS ORDERED: ACETAMINOPHEN500 M1 PO (08:58)
== END 2019-05-29 09:05 | disposition home or self-care (01) ==
LOC: D.ER 08:41
DX: G56.01 Carpal tunnel syndrome, right upper limb (principal)